=== PATIENT | female | born 1990 | race American Indian/Alaskan Native ===

== ENCOUNTER 2018-05-04 12:22 | Emergency (ER) | payer SELFPAY ==
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
[2018-05-04 13:37] VITALS: BP 120/70
== END 2018-05-04 13:38 | disposition home or self-care (01) ==
LOC: ED 12:22
DX: S39.012A Strain of muscle, fascia and tendon of lower back, initial encounter (principal); F17.200 Nicotine dependence, unspecified, uncomplicated; V49.49XA Driver injured in collision with other motor vehicles in traffic accident, initial encounter; Y93.89 Activity, other specified; Y92.89 Other specified places as the place of occurrence of the external cause; Y99.8 Other external cause status
CPT/HCPCS: 99282

== ENCOUNTER 2018-11-23 05:33 | Emergency (ER) | payer SELFPAY ==
[2018-11-23] MEDS ORDERED: ZOFRAN ODT ONE (05:53)
[2018-11-23] MEDS ORDERED: ZOFRAN ODT PO ONE ×2 (05:54→08:12)
[2018-11-23 06:09] LABS: Basophils # (Auto) 0.1 K/mm3 (0.0-0.1); Eosinophils # (Auto) 0.2 K/mm3 (0.0-0.4); Eosinophils % (Auto) 2.6 % (0.0-4.3); Hematocrit 41.5 % (30.3-42.9); Lymphocytes # (Auto) 1.4 K/mm3 (1.2-5.4); Lymphocytes % (Auto) 17.6 % (13.4-35.0); Mean Corpuscular HGB Conc 34 % (30-34); Mean Corpuscular Volume 92 fl (79-97); Monocytes # (Auto) 0.4 K/mm3 (0.0-0.8); Monocytes % (Auto) 4.7 % (0.0-7.3); Platelet Count 298 K/mm3 (140-440); Red Blood Count 4.52 M/mm3 (3.65-5.03); Red Cell Distribution Width 14.5 % (13.2-15.2)
[2018-11-23 06:29] LABS: Alanine Aminotransferase 12 units/L (7-56); Albumin 3.9 g/dL (3.9-5); BUN/Creatinine Ratio 8; Blood Urea Nitrogen 5 mg/dL (7-17); Calcium 8.8 mg/dL (8.4-10.2); Hemolysis Index 3
--- NOTE | 2018-11-23 07:25 | Emergency Department Report ---
ED General Adult HPI - General Chief complaint: Nausea/Vomiting/Diarrhea Stated complaint: WEAKNESS NV Time Seen by Provider: 11/23/18 06:24 Source: patient Mode of arrival: Ambulatory Limitations: No Limitations - History of Present Illness Initial comments: This is a 28-year-old female complains of nausea vomiting without signs of GI bleeding less than 1 day duration. She states the Zofran that was given prior to my arrival was infected. She states her abdomen in the lower quadrants is uncomfortable when she vomits but does not hurt independently. She denies fever or chills. She had no problems urinating. He denies problems with her bowel mo vements. -: Gradual, hour(s) Location: abdomen (as above only on vomiting) Radiation: non-radiation Quality: aching Consistency: intermittent, now resolved Improves with: none Worsens with: other (vomiting) Associated Symptoms: denies other symptoms - Related Data Previous Rx's Medication Instructions Recorded Last Taken Type Ibuprofen [Motrin 800 MG tab] 800 mg PO Q8HR PRN #12 tablet 05/04/18 Unknown Rx methOCARBAMOL [Robaxin TAB] 500 mg PO BID #10 tab 05/04/18 Unknown Rx Ondansetron [Zofran Odt] 4 mg PO Q8HR PRN #7 tab.rapdis 11/23/18 Unknown Rx traMADol [Ultram] 50 mg PO Q6HR PRN #7 tablet 11/23/18 Unknown Rx Allergies Allergy/AdvReac Type Severity Reaction Status Date / Time No Known Allergies Allergy Unverified 05/04/18 12:26 ED Review of Systems ROS: Stated complaint: WEAKNESS NV Other details as noted in HPI Constitutional: denies: chills, fever Eyes: denies: eye pain, eye discharge, vision change ENT: denies: ear pain, throat pain Respiratory: denies: cough, shortness of breath, wheezing Cardiovascular: denies: chest pain, palpitations Endocrine: no symptoms reported Gastrointestinal: abdominal pain, nausea, vomiting. denies: diarrhea, constipation, hematemesis, melena, hematochezia Genitourinary: denies: urgency, dysuria, discharge Musculoskeletal: denies: back pain, joint swelling, arthralgia Skin: denies: rash, lesions Neurological: denies: headache, weakness, paresthesias Psychiatric: denies: anxiety, depression Hematological/Lymphatic: denies: easy bleeding, easy bruising ED Past Medical Hx - Past Medical History Previous Medical History?: No - Surgical History Past Surgical History?: Yes Additional Surgical History: tonsil c section - Social History Smoking Status: Light Tobacco Smoker Substance Use Type: None - Medications Home Medications: Home Medications Medication Instructions Recorded Confirmed Last Taken Type Ibuprofen [Motrin 800 MG tab] 800 mg PO Q8HR PRN #12 tablet 05/04/18 Unknown Rx methOCARBAMOL [Robaxin TAB] 500 mg PO BID #10 tab 05/04/18 Unknown Rx Ondansetron [Zofran Odt] 4 mg PO Q8HR PRN #7 tab.rapdis 11/23/18 Unknown Rx traMADol [Ultram] 50 mg PO Q6HR PRN #7 tablet 11/23/18 Unknown Rx ED Physical Exam - General Limitations: No Limitations General appearance: alert, in no apparent distress - Head Head exam: Present: atraumatic, normocephalic - Eye Eye exam: Present: normal appearance. Absent: scleral icterus - ENT ENT exam: Present: mucous membranes moist - Neck Neck exam: Present: normal inspection - Respiratory Respiratory exam: Present: normal lung sounds bilaterally. Absent: respiratory distress - Cardiovascular Cardiovascular Exam: Present: regular rate, normal rhythm. Absent: systolic murmur, diastolic murmur, rubs, gallop - GI/Abdominal GI/Abdominal exam: Present: soft, normal bowel sounds. Absent: distended, tenderness, guarding, rebound, rigid - Extremities Exam Extremities exam: Present: normal inspection - Back Exam Back exam: Present: normal inspection - Neurological Exam Neurological exam: Present: alert, oriented X3, CN II-XII intact. Absent: motor sensory deficit - Psychiatric Psychiatric exam: Present: normal affect, normal mood - Skin Skin exam: Present: warm, dry, intact, normal color. Absent: rash ED Course Vital Signs 11/23/18 11/23/18 11/23/18 05:46 06:18 06:28 Temperature 98.0 F 98.1 F Pulse Rate 100 H 78 Respiratory 18 19 18 Rate Blood Pressure 140/83 Blood Pressure 132/81 [Left] O2 Sat by Pulse 100 99 98 Oximetry 11/23/18 11/23/18 07:58 11:10 Temperature Pulse Rate 70 87 Respiratory 18 19 Rate Blood Pressure Blood Pressure 129/66 110/57 [Left] O2 Sat by Pulse 100 100 Oximetry - Reevaluation(s) Reevaluation #1: No complaints of pain. Zofran resolved nausea. No vomiting. Appropriate for outpatient management and follow-up. 11/23/18 12:26 Reevaluation #2: Reexamination the patient's abdomen was totally soft and nontender nondistended normal bowel sounds. 11/23/18 12:28 ED Medical Decision Making - Lab Data Result diagrams: 11/23/18 05:58 11/23/18 05:58 Laboratory Results - last 24 hr 11/23/18 11/23/18 05:58 05:58 WBC 7.8 RBC 4.52 Hgb 14.0 Hct 41.5 MCV 92 MCH 31 MCHC 34 RDW 14.5 Plt Count 298 Lymph % (Auto) 17.6 [place] % (Auto) 4.7 Eos % (Auto) 2.6 Baso % (Auto) 1.0 Lymph # 1.4 [place] # 0.4 Eos # 0.2 Baso # 0.1 Seg Neutrophils % 74.1 H Seg Neutrophils # 5.8 Sodium 138 Potassium 4.0 Chloride 103.6 Carbon Dioxide 22 Anion Gap 16 BUN 5 L Creatinine 0.6 L Estimated GFR > 60 BUN/Creatinine Ratio 8 Glucose 109 H Calcium 8.8 Total Bilirubin 0.30 AST 17 ALT 12 Alkaline Phosphatase 68 Total Protein 6.7 Albumin 3.9 Albumin/Globulin Ratio 1.4 Lipase 14 Laboratory Results - last 24 hr 11/23/18 11/23/18 11/23/18 05:58 05:58 06:00 WBC 7.8 RBC 4.52 Hgb 14.0 Hct 41.5 MCV 92 MCH 31 MCHC 34 RDW 14.5 Plt Count 298 Lymph % (Auto) 17.6 [place] % (Auto) 4.7 Eos % (Auto) 2.6 Baso % (Auto) 1.0 Lymph # 1.4 [place] # 0.4 Eos # 0.2 Baso # 0.1 Seg Neutrophils % 74.1 H Seg Neutrophils # 5.8 Sodium 138 Potassium 4.0 Chloride 103.6 Carbon Dioxide 22 Anion Gap 16 BUN 5 L Creatinine 0.6 L Estimated GFR > 60 BUN/Creatinine Ratio 8 Glucose 109 H Calcium 8.8 Total Bilirubin 0.30 AST 17 ALT 12 Alkaline Phosphatase 68 Total Protein 6.7 Albumin 3.9 Albumin/Globulin Ratio 1.4 Lipase 14 HCG, Qual Negative Laboratory Results - last 24 hr 11/23/18 11/23/18 11/23/18 05:58 05:58 06:00 WBC 7.8 RBC 4.52 Hgb 14.0 Hct 41.5 MCV 92 MCH 31 MCHC 34 RDW 14.5 Plt Count 298 Lymph % (Auto) 17.6 [place] % (Auto) 4.7 Eos % (Auto) 2.6 Baso % (Auto) 1.0 Lymph # 1.4 [place] # 0.4 Eos # 0.2 Baso # 0.1 Seg Neutrophils % 74.1 H Seg Neutrophils # 5.8 Sodium 138 Potassium 4.0 Chloride 103.6 Carbon Dioxide 22 Anion Gap 16 BUN 5 L Creatinine 0.6 L Estimated GFR > 60 BUN/Creatinine Ratio 8 Glucose 109 H Calcium 8.8 Total Bilirubin 0.30 AST 17 ALT 12 Alkaline Phosphatase 68 Total Protein 6.7 Albumin 3.9 Albumin/Globulin Ratio 1.4 Lipase 14 HCG, Qual Negative Critical care attestation.: If time is entered above; I have spent that time in minutes in the direct care of this critically ill patient, excluding procedure time. ED Disposition Clinical Impression: Nausea and vomiting Qualifiers: Vomiting type: unspecified Vomiting Intractability: non-intractable Qualified Code(s): R11.2 - Nausea with vomiting, unspecified Disposition: - TO HOME OR SELFCARE Is pt being admited?: No Does the pt Need Aspirin: No Condition: Stable Instructions: Acute Nausea and Vomiting (ED), Abdominal Pain (ED) Additional Instructions: Follow-up with a primary care physician. Return any acute change or problem. Rx as needed. Increase fluids. Prescriptions: traMADol [Ultram] 50 mg PO Q6HR PRN #7 tablet PRN Reason: Pain Ondansetron [Zofran Odt] 4 mg PO Q8HR PRN #7 tab.rapdis PRN Reason: Nausea Referrals: NATALYA PARKER MD [Primary Care Provider] - 2-3 Days Time of Disposition: 12:27
[2018-11-23 10:34] LABS: Bilirubin,Urine NEG (Negative); Blood,Urine NEG (Negative); Color,Urine Yellow (Yellow); Mucus,Urine FEW /HPF; Protein,Urine <15 mg/dL mg/dL (Negative); Urobilinogen,Urine < 2.0 mg/dL (<2.0); WBC,Urine < 1.0 /HPF (0.0-6.0)
[2018-11-23 13:42] VITALS: BP 115/65
== END 2018-11-23 13:41 | disposition home or self-care (01) ==
LOC: ED 05:33
DX: R11.2 Nausea with vomiting, unspecified (principal); R10.30 Lower abdominal pain, unspecified; F17.200 Nicotine dependence, unspecified, uncomplicated
CPT/HCPCS: 36415; 80053; 81001; 83690; 84703; 85025; 99284; Q0162

== ENCOUNTER 2021-05-28 11:52 | Emergency (ER) | payer MEDICAID ==
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
[2021-05-28 12:59] VITALS: BP 120/70
[2021-05-28 13:01] LABS: Basophils # (Auto) 0.1 K/mm3 (0.0-0.1); Basophils % (Auto) 0.6 % (0.0-1.8); Eosinophils # (Auto) 0.1 K/mm3 (0.0-0.4); Eosinophils % (Auto) 0.6 % (0.0-4.3); Hemoglobin 13.1 gm/dl (10.1-14.3); Lymphocytes # (Auto) 1.7 K/mm3 (1.2-5.4); Lymphocytes % (Auto) 19.6 % (13.4-35.0); Mean Corpuscular HGB Conc 34 % (30-34); Mean Corpuscular Volume 93 fl (79-97); Monocytes # (Auto) 0.4 K/mm3 (0.0-0.8); Monocytes % (Auto) 4.6 % (0.0-7.3); Red Blood Count 4.19 M/mm3 (3.65-5.03); Red Cell Distribution Width 13.7 % (13.2-15.2)
--- NOTE | 2021-05-28 13:27 | Ultrasound Report ---
US OB <= 14 weeks fetus INDICATION / CLINICAL INFORMATION: Vaginal bleeding. TECHNIQUE: Transabdominal. COMPARISON: None available. FINDINGS: UTERUS: Posterior subserosal fibroid measuring 7 cm. GESTATIONAL SAC: Well-defined oval shape and intrauterine in location. EMBRYO/FETUS: - [place]-Rump Length = 2.8 cm - Heart Rate, beats per minute (if present) = 174 beats per minute ADNEXA: No significant abnormality. FREE FLUID: None. ADDITIONAL FINDINGS: None. IMPRESSION: 1. Single, living intrauterine with estimated sonographic age of 10 weeks 4 days. Signer Name: Deangelo Castro MD Signed: 05/28/2021 1:23 PM Workstation Name: [id number]
[2021-05-28 14:59] LABS: Bilirubin,Urine NEG (Negative); Blood,Urine NEG (Negative); Color,Urine Yellow (Yellow); Mucus,Urine FEW /HPF; Protein,Urine <15 mg/dL mg/dL (Negative); Urobilinogen,Urine < 2.0 mg/dL (<2.0)
[2021-05-28 15:00] LABS: Platelet Count 282 K/mm3 (140-440)
[2021-05-28 15:26] LABS: Blood Urea Nitrogen 9 mg/dL (7-17); Calcium 8.9 mg/dL (8.4-10.2); Hemolysis Index 10
[2021-05-28 15:44] LABS: BUN/Creatinine Ratio 15
== END 2021-05-28 13:55 | disposition home or self-care (01) ==
LOC: ED 11:52
DX: O26.891 Other specified pregnancy related conditions, first trimester (principal); R10.9 Unspecified abdominal pain; Z3A.11 11 weeks gestation of pregnancy
CPT/HCPCS: 36415; 76801; 80048; 81001; 84702; 85025; 86900; 86901; 99284

== ENCOUNTER 2021-08-02 20:17 | Emergency (ER) | payer OTHER, MEDICAID ==
[2021-08-02 20:47] VITALS: BP 139/92
[2021-08-02 22:20] LABS: HCG Qualitative,Urine Negative (Negative)
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
== END 2021-08-03 01:03 | disposition home or self-care (01) ==
LOC: ED 20:17
DX: S33.5XXA Sprain of ligaments of lumbar spine, initial encounter (principal); S60.222A Contusion of left hand, initial encounter; S13.8XXA Sprain of joints and ligaments of other parts of neck, initial encounter; Z98.890 Other specified postprocedural states; V49.69XA Unspecified car occupant injured in collision with other motor vehicles in traffic accident, initial encounter; Y93.89 Activity, other specified; Y92.89 Other specified places as the place of occurrence of the external cause; Y99.8 Other external cause status
CPT/HCPCS: 72040; 72100; 81025; 99283

== ENCOUNTER 2022-04-22 16:36 | Emergency (ER) | payer MEDICAID ==
[2022-04-22 16:43] VITALS: BP 148/110
== END 2022-04-23 06:30 | disposition left against medical advice (07) ==
LOC: ED 16:36
DX: R10.9 Unspecified abdominal pain (principal); Z53.21 Procedure and treatment not carried out due to patient leaving prior to being seen by health care provider